=== PATIENT | female | born 1985 | race Caucasian/White ===

== ENCOUNTER 2020-01-31 09:31 | Inpatient (IN) | payer OTHER ==
--- NOTE | 2020-01-31 10:07 | BHS.RME ---
Substance Use & Tx History - Substance Use History Alcohol Substance amount: 1 pint vodka Frequency of use: Daily Substance route: Oral Date of Last Use: 01/31/20 Cocaine- Powder Substance amount: $50-100 Frequency of use: Daily Substance route: Inhalation (ex: sniffing or snorting) Date of Last Use: 01/31/20 Physical/Psych/Mental Status - Behavior General Behavior: Increased activity (restlessness, agitation) Eye Contact: Normal - Cooperativeness Cooperativeness: Cooperative - Thinking Thought Processes: Tight, Logical, Goal Directed - Physical Health Problems Is patient presently having any pain?: No Does patient presently have any injuries (include location): No Does patient currently have a fever: No Is patient : No CIWA Nausea/Vomitin Muscle Tremors: 1-None Visible, but [place] Anxiety: 1-Mildly Anxious Agitation: 1-Slight > Activity Paroxysmal Sweats: No Perspiration Orientation: 0-Oriented Tacttile Disturbances: 0-None Auditory Disturbances: 0-None Visual Disturbances: 0-None Headache: 0-None Present (drank one hour prior to coming to detox not yet in withdrawals) CIWA-Ar Total Score: 5
--- NOTE | 2020-01-31 10:42 | HP ---
CIWA Score Nausea/Vomitin Muscle Tremors: 1-None Visible, but [place] Anxiety: 1-Mildly Anxious Agitation: 1-Slight > Activity Paroxysmal Sweats: No Perspiration Orientation: 0-Oriented Tacttile Disturbances: 0-None Auditory Disturbances: 0-None Visual Disturbances: 0-None Headache: 0-None Present (drank one hour prior to coming to detox not yet in withdrawals) CIWA-Ar Total Score: 5 - Admission Criteria OASAS Guidelines: Admission for Medically Managed Detox: Requires at least one of the followin. CIWA greater than 12 2. Seizures within the past 24 hours 3. Delirium tremens within the past 24 hours 4. Hallucinations within the past 24 hours 5. Acute intervention needed for co occurring medical disorder 6. Acute intervention needed for co occurring psychiatric disorder 7. Severe withdrawal that cannot be handled at a lower level of care (continued vomiting, continued diarrhea, abnormal vital signs) requiring intravenous medication and/or fluids 8. Admitting History and Physical - Admission Chief Complaint: Ms. Payne is a 34 yo woman who presents to [facility] requesting detox for alcohol use disorder. History of Present Illness: Ms. Payne is a 34 yo woman who presents to [facility] requesting detox for alcohol use disorder. She states "I want to be in my kids life". This is her first admission to [facility]. She was abstinent for 3 years, relapsed 08/2019. PMH/PSH/Legal:wants to see her son age 8yo who is under custody of pts ruel Psych: depression bipolar: dx 2018: no meds: was on Wellbutrin, Remeron SOC: homeless on streets Substance Use History Alcohol Substance amount: 1 pint vodka Frequency of use: Daily Substance route: Oral Date of Last Use: 01/31/20 First use age 10 y Seizure in her 20s Blackout multiple, last was 2 days ago. 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 Cocaine- Powder Substance amount: $50-100 Frequency of use: Daily Substance route: Inhalation (ex: sniffing or snorting) Date of Last Use: 01/31/20 First use age 23 y Benzos: uses if "up for 3 days and need to pass out" History Source: Patient Limitations to Obtaining History: No Limitations Admission [facility] Allergies/Adverse Reactions: Allergies Allergy/AdvReac Type Severity Reaction Status Date / Time No Known Drug Allergies Allergy Verified 01/31/20 11:19 Exam Limitations: No Limitations - Ebola screening Have you traveled outside of the country in the last 21 days: No Have you been sick,other than usual withdrawal symptoms: No Do you have a fever: No - Review of Systems Constitutional: Unintentional Wgt. Loss (weight loss 50 lbs in 6 mos) EENT: reports: Blurred Vision (uses glasses for distance, not with her) Respiratory: reports: Shortness of Breath Cardiac: reports: No Symptoms Reported GI: reports: Nausea : reports: Other (Went to detox and urine pregnance positive, sonogram done at [facility] told "no sac", had HcG at [facility] a few weeks to one month ago and numbers were rising. vaginal bleeding for the past 3 weeks) Musculoskeletal: reports: No Symptoms Reported Integumentary: reports: No Symptoms Reported Neuro: reports: No Symptoms reported Endocrine: reports: No Symptoms Reported Hematology: reports: No Symptoms Reported Psychiatric: reports: Anxious Patient History - Smoking Cessation Smoking history: Current every day smoker Have you smoked in the past 12 months: Yes Aproximately how many cigarettes per day: 30 Hx Chewing Tobacco Use: No Initiated information on smoking cessation: Yes 'Breaking Loose' booklet given: 01/31/20 Admission Physical Exam [facility] - Physical General Appearance: Yes: Nourished, Disheveled, Irritable HEENTM: Yes: EOMI, Hearing grossly Normal, Normocephalic, Normal Voice Respiratory: Yes: Lungs Clear, Normal Breath Sounds, No Respiratory Distress, No Accessory Muscle Use Neck: Yes: Within Normal Limits, Supple Breast: Yes: Breast Exam Deferred Cardiology: Yes: Regular Rhythm, Regular Rate, S1, S2 Abdominal: Yes: Normal Bowel Sounds, Non Tender, Flat, Soft Back: Yes: Normal Inspection Musculoskeletal: Yes: Gait Steady Extremities: Yes: Normal Inspection, Non-Tender Neurological: Yes: Alert Integumentary: Yes: Normal Color, Dry, Warm - Diagnostic (1) Alcohol dependence with withdrawal, uncomplicated Current Visit: Yes Status: Acute Cleared for Admission [facility] - Detox or Rehab [facility] Level of Care: Medically Managed Detox Regimen/Protocol: Librium Inpatient Rehab Admission - Rehab Decision to Admit Inpatient rehab admission?: No
[2020-01-31] MEDS ORDERED: ONDANSETRON *ODT* 4 MG TABLET SL PRN (11:19)
[2020-01-31] MEDS ORDERED: NICOTINE POLACRILEX 2 MG GUM BUC PRN (11:19)
[2020-01-31] MEDS ORDERED: IBUPROFEN 400 MG TABLET (FP) PO PRN (11:19)
[2020-01-31] MEDS ORDERED: MAG HYDROX/AL HYDROX/SIMETH 30 ML UNIT-DOSE CUP PO PRN (11:19)
[2020-01-31] MEDS ORDERED: chlordiazePOXIDE HCL 25 MG CAPSULE PO PRN (11:19)
[2020-01-31] MEDS ORDERED: MENTHOL/PHENOL 1 EACH UD MM PRN (11:19)
[2020-01-31] MEDS ORDERED: METHOCARBAMOL 500 MG TABLET PO PRN (11:19)
[2020-01-31] MEDS ORDERED: BISMUTH SUBSALICYLATE 524 MG/30 ML UD PO PRN (11:19)
[2020-01-31] MEDS ORDERED: ACETAMINOPHEN 325 MG TABLET (FP) PO PRN ×2 (11:19)
[2020-01-31] MEDS ORDERED: MAGNESIUM CITRATE 300 ML BOTTLE PO PRN (11:19)
[2020-01-31] MEDS ORDERED: MAGNESIUM HYDROX 2400MG/30ML ORAL SUSPENSION 30 ML CUP PO PRN (11:19)
[2020-01-31 12:03] VITALS: BMI 20.5
[2020-01-31] MEDS: NICOTINE 21 MG/24 HOURS TOPICAL PATCH TD SCH (12:13)
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
--- NOTE | 2020-01-31 13:06 | EKG ---
Test Reason : Blood Pressure : / mmHG Vent. Rate : 084 BPM Atrial Rate : 084 BPM P-R Int : 136 ms QRS Dur : 092 ms QT Int : 382 ms P-R-T Axes : 071 066 062 degrees QTc Int : 451 ms NORMAL SINUS RHYTHM NORMAL ECG NO PREVIOUS ECGS AVAILABLE Confirmed by MD LES, DIONNA ([id number]) on 01/31/2020 1:06:12 PM Referred By: Confirmed By:DIONNA SALDANA MD
[2020-01-31] MEDS ORDERED: MELATONIN 5 MG TABLETS PO PRN (13:09)
[2020-01-31] MEDS ORDERED: hydrOXYzine PAMOATE 25 MG CAPSULE (FP) PO SCH (14:00)
[2020-01-31 14:55] LABS: HEMATOCRIT 37.9 % (32.4-45.2); HEMOGLOBIN 12.7 GM/dL (10.7-15.3); MCH 30.2 pg (25.7-33.7); MCHC 33.5 g/dl (32.0-36.0); MEAN CELL VOLUME 90.1 fl (80-96); PLATELET COUNT 371 K/MM3 (134-434); RBC 4.21 M/mm3 (3.60-5.2); RDW 16.3 % (11.6-15.6); WHITE BLOOD COUNT 6.4 K/mm3 (4.0-10.0)
[2020-01-31 15:13] LABS: ALBUMIN 3.4 g/dl (3.4-5.0); BLOOD UREA NITROGEN 7.4 mg/dL (7-18); CALCIUM 8.8 mg/dL (8.5-10.1); CREATININE 0.8 mg/dL (0.55-1.3); POTASSIUM 3.2 mmol/L (3.5-5.1)
[2020-01-31 15:17] LABS: BILIRUBIN,TOTAL 0.3 mg/dL (0.2-1); TOT PROT 6.9 g/dl (6.4-8.2)
--- NOTE | 2020-01-31 15:58 | PN ---
[facility] Progress Note Note: Results of BHcG reviewed, result: 23: 0.2 to one week gestational age. Consistent with pts history: recent positive , recent HcG was "800", sonogram without sac per pt. Pt reports 3 weeks of vaginal bleeding. History and HcG consistent with recent spontaneous . Plan: 1. proceed with Librium taper
[2020-01-31] MEDS: chlordiazePOXIDE HCL 25 MG CAPSULE PO SCH ×2 (17:18→22:11)
[2020-01-31] MEDS ORDERED: MELATONIN 5 MG TABLETS PO SCH (22:00)
[2020-01-31] MEDS: THIAMINE HCL 100 MG TABLET (FP) PO SCH (22:11)
[2020-02-01] MEDS: chlordiazePOXIDE HCL 25 MG CAPSULE PO SCH ×4 (05:34→22:18)
--- NOTE | 2020-02-01 11:18 | PN ---
S CIWA - CIWA Score Nausea/Vomitin-No Nausea/No Vomiting Muscle Tremors: 2 Anxiety: 1-Mildly Anxious Agitation: 1-Slight > Activity Paroxysmal Sweats: 2 Orientation: 0-Oriented Tacttile Disturbances: 0-None Auditory Disturbances: 0-None Visual Disturbances: 0-None Headache: 0-None Present CIWA-Ar Total Score: 6 BHS Progress Note (SOAP) Subjective: sweats little shakes restless Objective: 02/01/20 11:18 Vital Signs Temperature 96.9 F L 02/01/20 08:52 Pulse Rate 94 H 02/01/20 08:52 Respiratory Rate 19 02/01/20 08:52 Blood Pressure 108/78 02/01/20 08:52 O2 Sat by Pulse Oximetry (%) 100 02/01/20 08:52 Laboratory Tests 01/31/20 01/31/20 01/31/20 10:41 11:15 11:15 WBC 6.4 RBC 4.21 Hgb 12.7 Hct 37.9 MCV 90.1 MCH 30.2 MCHC 33.5 RDW 16.3 H Plt Count 371 MPV 8.0 Sodium 141 Potassium 3.2 L Chloride 108 H Carbon Dioxide 24 Anion Gap 8 BUN 7.4 Creatinine 0.8 Est GFR (CKD-EPI)AfAm 109.93 Est GFR (CKD-EPI)NonAf 94.85 Random Glucose 121 H Calcium 8.8 Total Bilirubin 0.3 AST 29 ALT 18 Alkaline Phosphatase 91 Total Protein 6.9 Albumin 3.4 Beta HCG, Quant 25.8 POC Urine HCG, Qual Positive Syphilis Serology COVID-19 (CHRISTEL) 01/31/20 01/31/20 01/31/20 11:15 11:15 12:00 WBC RBC Hgb Hct MCV MCH MCHC RDW Plt Count MPV Sodium Potassium Chloride Carbon Dioxide Anion Gap BUN Creatinine Est GFR (CKD-EPI)AfAm Est GFR (CKD-EPI)NonAf Random Glucose Calcium Total Bilirubin AST ALT Alkaline Phosphatase Total Protein Albumin Beta HCG, Quant Cancelled POC Urine HCG, Qual Syphilis Serology Non-reactive COVID-19 (CHRISTEL) Not detected labs noted low potassium 3.2; kdur ordered Beta HCG 25.8 noted. pt indicated bleeding on admission; sonogram done at other facility prior to coming here for detox; and no sign of . will repeat Beta HCG on wednesday will repeat CMP on wednesday. Assessment: 02/01/20 11:21 withdrawals Plan: continue detox repeated labs ordered nicotine gum 4mg ordered
[2020-02-01] MEDS: POTASSIUM CHLORIDE TABS 20 MEQ TABLET.ER (FP) PO SCH (11:20)
[2020-02-01] MEDS: PRENATAL VITAMINS W/ FOLIC ACID TABLET (FP) PO SCH (11:20)
[2020-02-01] MEDS: NICOTINE 21 MG/24 HOURS TOPICAL PATCH TD SCH (11:21)
[2020-02-01] MEDS: NICOTINE POLACRILEX 4 MG GUM BUC PRN (11:21)
[2020-02-01] MEDS: THIAMINE HCL 100 MG TABLET (FP) PO SCH (22:19)
[2020-02-01] MEDS: hydrOXYzine PAMOATE 25 MG CAPSULE (FP) PO PRN (22:21)
[2020-02-02] MEDS: chlordiazePOXIDE HCL 25 MG CAPSULE PO SCH ×4 (05:59→22:09)
[2020-02-02] MEDS: hydrOXYzine PAMOATE 25 MG CAPSULE (FP) PO PRN ×4 (06:00→22:12)
--- NOTE | 2020-02-02 10:21 | PN ---
S CIWA - CIWA Score Nausea/Vomitin-No Nausea/No Vomiting Muscle Tremors: 3 Anxiety: 1-Mildly Anxious Agitation: 1-Slight > Activity Paroxysmal Sweats: No Perspiration Orientation: 0-Oriented Tacttile Disturbances: 0-None Auditory Disturbances: 0-None Visual Disturbances: 0-None Headache: 0-None Present CIWA-Ar Total Score: 5 BHS Progress Note (SOAP) Subjective: sweats shakes anxiety I need to see psych again. Objective: 02/02/20 10:20 Vital Signs Temperature 97.4 F L 02/02/20 08:39 Pulse Rate 85 02/02/20 08:39 Respiratory Rate 18 02/02/20 08:39 Blood Pressure 115/79 02/02/20 08:39 O2 Sat by Pulse Oximetry (%) 100 02/02/20 05:36 Laboratory Tests 01/31/20 01/31/20 01/31/20 10:41 11:15 11:15 WBC 6.4 RBC 4.21 Hgb 12.7 Hct 37.9 MCV 90.1 MCH 30.2 MCHC 33.5 RDW 16.3 H Plt Count 371 MPV 8.0 Sodium 141 Potassium 3.2 L Chloride 108 H Carbon Dioxide 24 Anion Gap 8 BUN 7.4 Creatinine 0.8 Est GFR (CKD-EPI)AfAm 109.93 Est GFR (CKD-EPI)NonAf 94.85 Random Glucose 121 H Calcium 8.8 Total Bilirubin 0.3 AST 29 ALT 18 Alkaline Phosphatase 91 Total Protein 6.9 Albumin 3.4 Beta HCG, Quant 25.8 POC Urine HCG, Qual Positive Syphilis Serology COVID-19 (CHRISTEL) 01/31/20 01/31/20 01/31/20 11:15 11:15 12:00 WBC RBC Hgb Hct MCV MCH MCHC RDW Plt Count MPV Sodium Potassium Chloride Carbon Dioxide Anion Gap BUN Creatinine Est GFR (CKD-EPI)AfAm Est GFR (CKD-EPI)NonAf Random Glucose Calcium Total Bilirubin AST ALT Alkaline Phosphatase Total Protein Albumin Beta HCG, Quant Cancelled POC Urine HCG, Qual Syphilis Serology Non-reactive COVID-19 (CHRISTEL) Not detected repeat labs ordered for wednesday aaox3 ambulating no acute distress Assessment: 02/02/20 10:21 withdrawals Plan: continue detox increase fluids
[2020-02-02] MEDS: POTASSIUM CHLORIDE TABS 20 MEQ TABLET.ER (FP) PO SCH (11:04)
[2020-02-02] MEDS: PRENATAL VITAMINS W/ FOLIC ACID TABLET (FP) PO SCH (11:04)
[2020-02-02] MEDS: THIAMINE HCL 100 MG TABLET (FP) PO SCH (22:09)
[2020-02-03] MEDS ORDERED: chlordiazePOXIDE HCL 10 MG CAPSULE PO PRN
[2020-02-03] MEDS: chlordiazePOXIDE HCL 10 MG CAPSULE PO SCH ×3 (05:54→18:25)
[2020-02-03] MEDS: hydrOXYzine PAMOATE 25 MG CAPSULE (FP) PO PRN ×2 (05:56→10:56)
[2020-02-03] MEDS: PRENATAL VITAMINS W/ FOLIC ACID TABLET (FP) PO SCH (10:56)
[2020-02-03] MEDS: NICOTINE POLACRILEX 4 MG GUM BUC PRN (10:56)
[2020-02-03] MEDS: POTASSIUM CHLORIDE TABS 20 MEQ TABLET.ER (FP) PO SCH (10:56)
[2020-02-03 15:12] VITALS: BP 102/65; PULSE 87; TEMP 97.5
--- NOTE | 2020-02-03 18:09 | PN ---
[facility] Progress Note Note: patient has verbal altercation with other patients on the unit,securities and nursing supervisor toy assembly present on the unit, please refer to RN Yasmeen Paiz's note ,patient left ama ,all attempts to convince patient to stay with no avail, patient did not want to wait ,escorted off the unit by securities
--- NOTE | 2020-02-03 18:10 | DS ---
[facility] Detox Discharge Summary Admission Date: 01/31/20 Discharge Date: 02/03/20 - History Present History: Alcohol Dependence, Cocaine Dependence Additional Comments: patient left ama, Pertinent Past History: bipolar disorder nicotine dependence - Physical Exam Results Vital Signs: Vital Signs Temperature 97.5 F L 02/03/20 12:46 Pulse Rate 87 02/03/20 12:46 Respiratory Rate 18 02/03/20 12:46 Blood Pressure 102/65 02/03/20 12:46 O2 Sat by Pulse Oximetry (%) 97 02/03/20 12:46 Pertinent Admission Physical Exam Findings: withdrawal signs and symptom Laboratory Last Values WBC 6.4 K/mm3 (4.0-10.0) 01/31/20 11:15 RBC 4.21 M/mm3 (3.60-5.2) 01/31/20 11:15 Hgb 12.7 GM/dL (10.7-15.3) 01/31/20 11:15 Hct 37.9 % (32.4-45.2) 01/31/20 11:15 MCV 90.1 fl (80-96) 01/31/20 11:15 MCH 30.2 pg (25.7-33.7) 01/31/20 11:15 MCHC 33.5 g/dl (32.0-36.0) 01/31/20 11:15 RDW 16.3 % (11.6-15.6) H 01/31/20 11:15 Plt Count 371 K/MM3 (134-434) 01/31/20 11:15 MPV 8.0 fl (7.5-11.1) 01/31/20 11:15 Sodium 141 mmol/L (136-145) 01/31/20 11:15 Potassium 3.2 mmol/L (3.5-5.1) L 01/31/20 11:15 Chloride 108 mmol/L (98-107) H 01/31/20 11:15 Carbon Dioxide 24 mmol/L (21-32) 01/31/20 11:15 Anion Gap 8 MMOL/L (8-16) 01/31/20 11:15 BUN 7.4 mg/dL (7-18) 01/31/20 11:15 Creatinine 0.8 mg/dL (0.55-1.3) 01/31/20 11:15 Est GFR (CKD-EPI)AfAm 109.93 01/31/20 11:15 Est GFR (CKD-EPI)NonAf 94.85 01/31/20 11:15 Random Glucose 121 mg/dL (74-106) H 01/31/20 11:15 Calcium 8.8 mg/dL (8.5-10.1) 01/31/20 11:15 Total Bilirubin 0.3 mg/dL (0.2-1) 01/31/20 11:15 AST 29 U/L (15-37) 01/31/20 11:15 ALT 18 U/L (13-61) 01/31/20 11:15 Alkaline Phosphatase 91 U/L (45-117) 01/31/20 11:15 Total Protein 6.9 g/dl (6.4-8.2) 01/31/20 11:15 Albumin 3.4 g/dl (3.4-5.0) 01/31/20 11:15 Beta HCG, Quant 25.8 mIU/ml 01/31/20 11:15 Beta HCG, Quant Cancelled 01/31/20 11:15 POC Urine HCG, Qual Positive 01/31/20 10:41 Syphilis Serology Non-reactive (NONREACTIVE) 01/31/20 11:15 COVID-19 (CHRISTEL) Not detected (Not Detected) 01/31/20 12:00 Vital Signs Temperature 97.5 F L 02/03/20 12:46 Pulse Rate 87 02/03/20 12:46 Respiratory Rate 18 02/03/20 12:46 Blood Pressure 102/65 02/03/20 12:46 O2 Sat by Pulse Oximetry (%) 97 02/03/20 12:46 - Diagnosis (1) Alcohol dependence with withdrawal, uncomplicated Status: Acute (2) Cocaine dependence Status: Acute (3) Nicotine dependence Status: Chronic (4) Bipolar disorder Status: Ruled-out - AMA Did Patient Leave Against Medical Advice: Yes
--- NOTE | 2020-02-03 18:25 | PN ---
[facility] CIWA - CIWA Score Nausea/Vomitin-No Nausea/No Vomiting Muscle Tremors: None Anxiety: 4-Mod. Anxious/Guarded Agitation: 4-Moderately Restless Paroxysmal Sweats: 1-Minimal Palms Moist Orientation: 2-Disoriented Date<2 days Tacttile Disturbances: 0-None Auditory Disturbances: 0-None Visual Disturbances: 0-None Headache: 0-None Present CIWA-Ar Total Score: 11 S Progress Note (SOAP) Subjective: This CIWA - S.O.A.P. Note written for daily rounds assessment of Patient for 02/03/2020: Subjective: Anxious, Restless, Body Aches, Interrupted Sleep. Objective: Patient A & O X 2 (Uncertain About Current Day/Date). Patient Observed Ambulating on Detox Unit Unassisted. In No Acute Distress. 02/03/20 18:21 Vital Signs Temperature 97.5 F L 02/03/20 12:46 Pulse Rate 87 02/03/20 12:46 Respiratory Rate 18 02/03/20 12:46 Blood Pressure 102/65 02/03/20 12:46 O2 Sat by Pulse Oximetry (%) 97 02/03/20 12:46 Laboratory Tests 01/31/20 01/31/20 01/31/20 10:41 11:15 11:15 WBC 6.4 RBC 4.21 Hgb 12.7 Hct 37.9 MCV 90.1 MCH 30.2 MCHC 33.5 RDW 16.3 H Plt Count 371 MPV 8.0 Sodium 141 Potassium 3.2 L Chloride 108 H Carbon Dioxide 24 Anion Gap 8 BUN 7.4 Creatinine 0.8 Est GFR (CKD-EPI)AfAm 109.93 Est GFR (CKD-EPI)NonAf 94.85 Random Glucose 121 H Calcium 8.8 Total Bilirubin 0.3 AST 29 ALT 18 Alkaline Phosphatase 91 Total Protein 6.9 Albumin 3.4 Beta HCG, Quant 25.8 POC Urine HCG, Qual Positive Syphilis Serology COVID-19 (CHRISTEL) 01/31/20 01/31/20 01/31/20 11:15 11:15 12:00 WBC RBC Hgb Hct MCV MCH MCHC RDW Plt Count MPV Sodium Potassium Chloride Carbon Dioxide Anion Gap BUN Creatinine Est GFR (CKD-EPI)AfAm Est GFR (CKD-EPI)NonAf Random Glucose Calcium Total Bilirubin AST ALT Alkaline Phosphatase Total Protein Albumin Beta HCG, Quant Cancelled POC Urine HCG, Qual Syphilis Serology Non-reactive COVID-19 (CHRISTEL) Not detected Lab Results Noted. Assessment: 02/03/20 18:22 WITHDRAWAL SYMPTOMS. HYPOKALEMIA. Plan: Continue Detox. Continue K-Dur. Repeat CMP ordered for tomorrow AM. Admission Urine HCG level noted to be Positive. Patient reports history of recent miscarriage. Repeat Urine HCG test ordered for tomorrow AM. See previous medical treatment notes for more information.
[2020-02-04] MEDS ORDERED: chlordiazePOXIDE HCL 10 MG CAPSULE PO SCH (05:00)
--- NOTE | 2020-02-04 08:02 | DS ---
[facility] Detox Discharge Summary Admission Date: 01/31/20 Discharge Date: 02/03/20 - History Present History: Alcohol Dependence, Cannabis Dependence Pertinent Past History: nicotine dependence bipolar disorder - Physical Exam Results Vital Signs: Vital Signs Temperature 97.5 F L 02/03/20 12:46 Pulse Rate 87 02/03/20 12:46 Respiratory Rate 18 02/03/20 12:46 Blood Pressure 102/65 02/03/20 12:46 O2 Sat by Pulse Oximetry (%) 97 02/03/20 12:46 Pertinent Admission Physical Exam Findings: withdrawal signs and symptom Laboratory Last Values WBC 6.4 K/mm3 (4.0-10.0) 01/31/20 11:15 RBC 4.21 M/mm3 (3.60-5.2) 01/31/20 11:15 Hgb 12.7 GM/dL (10.7-15.3) 01/31/20 11:15 Hct 37.9 % (32.4-45.2) 01/31/20 11:15 MCV 90.1 fl (80-96) 01/31/20 11:15 MCH 30.2 pg (25.7-33.7) 01/31/20 11:15 MCHC 33.5 g/dl (32.0-36.0) 01/31/20 11:15 RDW 16.3 % (11.6-15.6) H 01/31/20 11:15 Plt Count 371 K/MM3 (134-434) 01/31/20 11:15 MPV 8.0 fl (7.5-11.1) 01/31/20 11:15 Sodium 141 mmol/L (136-145) 01/31/20 11:15 Potassium 3.2 mmol/L (3.5-5.1) L 01/31/20 11:15 Chloride 108 mmol/L (98-107) H 01/31/20 11:15 Carbon Dioxide 24 mmol/L (21-32) 01/31/20 11:15 Anion Gap 8 MMOL/L (8-16) 01/31/20 11:15 BUN 7.4 mg/dL (7-18) 01/31/20 11:15 Creatinine 0.8 mg/dL (0.55-1.3) 01/31/20 11:15 Est GFR (CKD-EPI)AfAm 109.93 01/31/20 11:15 Est GFR (CKD-EPI)NonAf 94.85 01/31/20 11:15 Random Glucose 121 mg/dL (74-106) H 01/31/20 11:15 Calcium 8.8 mg/dL (8.5-10.1) 01/31/20 11:15 Total Bilirubin 0.3 mg/dL (0.2-1) 01/31/20 11:15 AST 29 U/L (15-37) 01/31/20 11:15 ALT 18 U/L (13-61) 01/31/20 11:15 Alkaline Phosphatase 91 U/L (45-117) 01/31/20 11:15 Total Protein 6.9 g/dl (6.4-8.2) 01/31/20 11:15 Albumin 3.4 g/dl (3.4-5.0) 01/31/20 11:15 Beta HCG, Quant 25.8 mIU/ml 01/31/20 11:15 Beta HCG, Quant Cancelled 01/31/20 11:15 POC Urine HCG, Qual Positive 01/31/20 10:41 Syphilis Serology Non-reactive (NONREACTIVE) 01/31/20 11:15 COVID-19 (CHRISTEL) Not detected (Not Detected) 01/31/20 12:00 Vital Signs Temperature 97.5 F L 02/03/20 12:46 Pulse Rate 87 02/03/20 12:46 Respiratory Rate 18 02/03/20 12:46 Blood Pressure 102/65 02/03/20 12:46 O2 Sat by Pulse Oximetry (%) 97 02/03/20 12:46 - Diagnosis (1) Alcohol dependence with withdrawal, uncomplicated Status: Acute (2) Cocaine dependence Status: Acute (3) Nicotine dependence Status: Chronic (4) Bipolar disorder Status: Ruled-out
[2020-02-05] MEDS ORDERED: chlordiazePOXIDE HCL 10 MG CAPSULE PO ONE (05:00)
== END 2020-02-03 17:30 | disposition left against medical advice (07) | DRG 770 ==
LOC: YASAS 09:31 → Y6N 11:34
PROVIDERS: ADMIT Allergy & Immunology; ATTEND Allergy & Immunology
PROC: HZ2ZZZZ Detoxification Services for Substance Abuse Treatment (ICD-10-PCS; principal; 2020-01-31)
DX: F10.230 Alcohol dependence with withdrawal, uncomplicated (principal); F14.20 Cocaine dependence, uncomplicated; F17.210 Nicotine dependence, cigarettes, uncomplicated; F91.8 Other conduct disorders; F39 Unspecified mood [affective] disorder; F19.280 Other psychoactive substance dependence with psychoactive substance-induced anxiety disorder; F19.282 Other psychoactive substance dependence with psychoactive substance-induced sleep disorder; E87.6 Hypokalemia; Z62.810 Personal history of physical and sexual abuse in childhood; Z59.0 Homelessness
CPT/HCPCS: 36415; 80053; 81025; 84702; 85027; 86780; 93005; 93010; U0003